=== PATIENT | female | born 1995 | race Caucasian/White ===

== ENCOUNTER 2017-12-02 15:34 | Emergency (ER) | payer MEDICAID, OTHER ==
[~2017-12-02] VITALS: Ht 152.4 cm; Wt 75.7 kg
[2017-12-02 15:34] VITALS: BP_SYST 138
[2017-12-02 15:55] VITALS: BP_SYST 138
== END 2017-12-02 15:54 | disposition home or self-care (01) ==
LOC: SED 15:34
DX: F41.0 Panic disorder [episodic paroxysmal anxiety] (principal); R03.0 Elevated blood-pressure reading, without diagnosis of hypertension
CPT/HCPCS: 99284

== ENCOUNTER 2018-06-17 17:42 | Emergency (ER) | payer MEDICAID ==
[~2018-06-17] VITALS: Ht 152.4 cm; Wt 77.1 kg
[2018-06-17 17:58] VITALS: BP_SYST 113
[2018-06-17 18:30] LABS: BASOPHILS # (AUTO) 0.1 K/uL (0.0-0.2); BASOPHILS % (AUTO) 1.2 % (0.0-2.0); EOSINOPHILS # (AUTO) 0.1 K/uL (0.0-0.4); HEMATOCRIT 36.8 % (36-48); LYMPHOCYTES # (AUTO) 2.7 K/uL (1.0-5.5); LYMPHOCYTES % (AUTO) 29.3 % (20.5-51.5); MEAN CORPUSCULAR HEMOGLOBIN 27 pg (27-31); MEAN CORPUSCULAR HGB CONC 33 % (32-36); MEAN CORPUSCULAR VOLUME 82 fL (79.0-98.0); MONOCYTES # (AUTO) 0.4 K/uL (0.0-1.0); MONOCYTES % (AUTO) 3.9 % (1.7-9.3); NEUTROPHILS % (AUTO) 64.6 % (40.0-70.0); PLATELET COUNT (AUTO) 361 K/uL (130-430); WHITE BLOOD COUNT (AUTO) 9.3 K/uL (4.8-10.8)
[2018-06-17 18:38] LABS: CALCIUM 9.4 mg/dL (8.4-11.0); CREATININE 0.77 mg/dL (0.55-1.30); POTASSIUM 3.6 mmol/L (3.5-5.1)
[2018-06-17 18:46] LABS: PROTHROMBIN TIME 10.5 SECS (9.5-12.5)
[2018-06-17 19:01] LABS: BILIRUBIN,URINE NEGATIVE (NEGATIVE); BLOOD, URINE 3+ (NEGATIVE); CLARITY/URINE CLOUDY (CLEAR); COLOR,URINE RED (YELLOW); GLUCOSE,URINE NEGATIVE (NEGATIVE); KETONES,URINE NEGATIVE (NEGATIVE); LEUKOCYTE ESTERASE ,URINE NEGATIVE (NEGATIVE); NITRITE, URINE NEGATIVE (NEGATIVE); PH,URINE 5.5 (5.0-8.0); PROTEIN URINE 3+ (NEGATIVE); UROBILINOGEN,URINE 0.2 (0.2-1.0)
[2018-06-17 19:02] LABS: BACTERIA,URINE FEW /HPF (None Seen); RBC,URINE >100 /HPF (0-3); WBC,URINE 0-3 /HPF (0-3)
[2018-06-17] MEDS ORDERED: KETOROLAC TROMETHAMINE 30 MG VIAL IM ONE (20:00)
[2018-06-17 21:06] VITALS: BP_SYST 113
== END 2018-06-17 21:06 | disposition home or self-care (01) ==
LOC: SED 17:42
DX: N94.6 Dysmenorrhea, unspecified (principal); F41.9 Anxiety disorder, unspecified
CPT/HCPCS: 36415; 80048; 81000; 81025; 84702; 85025; 85610; 85730; 96372; 99284; J1885

== ENCOUNTER 2018-08-04 17:50 | Emergency (ER) | payer MEDICAID ==
[~2018-08-04] VITALS: Ht 152.4 cm; Wt 77.1 kg
[2018-08-04 18:00] VITALS: BP_SYST 142
--- NOTE | 2018-08-04 18:05 | NUR ---
Patient triaged and placed in waiting room. VSS and patient appears in no acute distress at this time. Accompanied by SPOUSE, awaiting available bed, and MD notified of need for MSE.
[2018-08-04] MEDS ORDERED: NACL 0.9% 1,000 ML IV ONE (18:15)
[2018-08-04 18:22] LABS: COLOR,URINE RED (YELLOW)
[2018-08-04 18:23] LABS: BILIRUBIN,URINE NEGATIVE (NEGATIVE); BLOOD, URINE 3+ (NEGATIVE); CLARITY/URINE SLIGHTLY CLOUDY (CLEAR); GLUCOSE,URINE NEGATIVE (NEGATIVE); KETONES,URINE TRACE (NEGATIVE); LEUKOCYTE ESTERASE ,URINE NEGATIVE (NEGATIVE); NITRITE, URINE NEGATIVE (NEGATIVE); PROTEIN URINE 1+ (NEGATIVE)
[2018-08-04 18:32] LABS: BACTERIA,URINE FEW /HPF (None Seen); MUCUS,URINE None Seen /LPF (None Seen); RBC,URINE >100 /HPF (0-3); WBC,URINE 0-3 /HPF (0-3)
[2018-08-04 18:58] LABS: HEMATOCRIT 38.5 % (36-48); MEAN CORPUSCULAR HEMOGLOBIN 27 pg (27-31); MEAN CORPUSCULAR HGB CONC 34 % (32-36); MEAN CORPUSCULAR VOLUME 80 fL (79.0-98.0); PLATELET COUNT (AUTO) 322 K/uL (130-430); RED BLOOD CELL COUNT(AUTO) 4.85 MIL/uL (4.2-6.2); RED CELL DISTRIBUTION WIDTH 13.1 % (9.0-15.0); WHITE BLOOD COUNT (AUTO) 9.1 K/uL (4.8-10.8)
[2018-08-04 18:59] LABS: BASOPHILS # (AUTO) 0.1 K/uL (0.0-0.2); BASOPHILS % (AUTO) 0.8 % (0.0-2.0); EOSINOPHILS # (AUTO) 0.1 K/uL (0.0-0.4); EOSINOPHILS % (AUTO) 0.7 % (0.0-4.0); LYMPHOCYTES # (AUTO) 2.3 K/uL (1.0-5.5); LYMPHOCYTES % (AUTO) 25.1 % (20.5-51.5); MONOCYTES # (AUTO) 0.4 K/uL (0.0-1.0); MONOCYTES % (AUTO) 4.3 % (1.7-9.3); NEUTROPHILS # (AUTO) 6.2 K/uL (1.8-7.7); NEUTROPHILS % (AUTO) 69.1 % (40.0-70.0)
[2018-08-04 19:03] LABS: PROTHROMBIN TIME 9.8 SECS (9.5-12.5)
--- NOTE | 2018-08-04 19:39 | NUR ---
pt ambulatory to bed 7 for evaluation
--- NOTE | 2018-08-04 19:40 | NUR ---
Patient to ER via triage for evaluation of vag bleeding x 1 hour prior to arrival, patient c/o cramping prior to bleeding. Patient is , patient is awake, alert and oriented in no acute distress, vital signs stable, respirations even and unlabored, skin warm and dry to touch. Patient able to ambulate without difficulty to bed 7, awaiting results and dispo.
--- NOTE | 2018-08-04 20:00 | NUR ---
Patient resting quietly in no acute distress, awaiting results and dispo. Will continue to observe and assess.
--- NOTE | 2018-08-04 20:25 | NUR ---
ER at bedside examining patient.
[2018-08-04 21:00] VITALS: BP_SYST 130
--- NOTE | 2018-08-04 21:00 | NUR ---
Patient given written and verbal discharge instructions and verbalizes understanding. ER MD discussed with patient the results and treatment provided. Patient in stable condition. ID arm band removed. Rx of Motrin given. Patient educated on pain management and to follow up with PMD. Pain Scale 0. Opportunity for questions provided and answered. Medication side effect fact sheet provided. Patient left ER in no acute distress, able to ambulate without difficulty with slow, steady gait with friend at her side.
== END 2018-08-04 21:00 | disposition home or self-care (01) ==
LOC: SED 17:50
DX: O46.91 Antepartum hemorrhage, unspecified, first trimester (principal); O98.811 Other maternal infectious and parasitic diseases complicating pregnancy, first trimester; K04.7 Periapical abscess without sinus; F41.9 Anxiety disorder, unspecified; R03.0 Elevated blood-pressure reading, without diagnosis of hypertension; Z3A.01 Less than 8 weeks gestation of pregnancy
CPT/HCPCS: 36415; 76801; 76817; 81000-TC; 81025; 84702-TC; 85025; 85610-TC; 86901; 99284

== ENCOUNTER 2022-11-22 19:48 | Emergency (ER) | payer MEDICAID ==
[~2022-11-22] VITALS: Ht 154.9 cm; Wt 84.8 kg
[2022-11-22 19:54] VITALS: BP_SYST 149
[2022-11-22] MEDS ORDERED: IBUPROFEN 800 MG TABLET PO ONE (20:15)
[2022-11-22] MEDS ORDERED: HYDROcodone/ACETAMIN 7.5-325 MG TAB PO ONE (20:15)
[2022-11-22] MEDS ORDERED: TRAM50TA2 PO (21:17)
[2022-11-22] MEDS ORDERED: IBUP-1969 PO (21:17)
[2022-11-22 21:25] VITALS: BP_SYST 125
== END 2022-11-22 21:24 | disposition home or self-care (01) ==
LOC: SED 19:48
DX: S53.401A Unspecified sprain of right elbow, initial encounter (principal); Z79.899 Other long term (current) drug therapy; V00.131A Fall from skateboard, initial encounter; Y93.89 Activity, other specified; Y92.89 Other specified places as the place of occurrence of the external cause; Y99.8 Other external cause status
CPT/HCPCS: 73090; 81025; 99284

== ENCOUNTER 2023-09-04 17:51 | Emergency (ER) | payer MEDICAID ==
[~2023-09-04] VITALS: Ht 154.9 cm; Wt 86.2 kg
[~2023-09-04 17:51] MED LIST: IBUP-1969 PO; TRAM50TA2 PO
[2023-09-04 18:00] VITALS: BP_SYST 175; PULSE 106; RESP 18; TEMP 98.2; O2SAT 98
[2023-09-04 18:51] LABS: BASOPHILS # (AUTO) 0.1 K/uL (0.0-0.2); BASOPHILS % (AUTO) 1.1 % (0.0-2.0); EOSINOPHILS # (AUTO) 0.1 K/uL (0.0-0.4); EOSINOPHILS % (AUTO) 0.7 % (0.0-4.0); HEMOGLOBIN 13.6 g/dL (12.0-16.0); LYMPHOCYTES # (AUTO) 2.7 K/uL (1.0-5.5); MEAN CORPUSCULAR HEMOGLOBIN 28 pg (27-31); MEAN CORPUSCULAR HGB CONC 34 % (32-36); MEAN CORPUSCULAR VOLUME 84 fL (79.0-98.0); MONOCYTES # (AUTO) 0.4 K/uL (0.0-1.0); MONOCYTES % (AUTO) 4.9 % (1.7-9.3); NEUTROPHILS # (AUTO) 5.4 K/uL (1.8-7.7); NEUTROPHILS % (AUTO) 62.3 % (40.0-70.0); PLATELET COUNT (AUTO) 288 K/uL (130-430); RED BLOOD CELL COUNT(AUTO) 4.79 MIL/uL (4.2-6.2); RED CELL DISTRIBUTION WIDTH 13.7 % (9.0-15.0); WHITE BLOOD COUNT (AUTO) 8.6 K/uL (4.8-10.8)
[2023-09-04 20:06] LABS: BILIRUBIN,URINE NEGATIVE (NEGATIVE); CLARITY/URINE CLEAR (CLEAR); COLOR,URINE YELLOW (YELLOW); GLUCOSE,URINE 3+ (NEGATIVE); KETONES,URINE 2+ (NEGATIVE); LEUKOCYTE ESTERASE ,URINE NEGATIVE (NEGATIVE); NITRITE, URINE NEGATIVE (NEGATIVE); PROTEIN URINE NEGATIVE (NEGATIVE); UROBILINOGEN,URINE 0.2 (0.2-1.0)
[2023-09-04 20:15] LABS: BACTERIA,URINE RARE /HPF (None Seen); BLOOD, URINE TRACE (NEGATIVE); RBC,URINE 0-3 /HPF (0-3); WBC,URINE NONE SEEN /HPF (0-3)
[2023-09-04 20:16] LABS: MUCUS,URINE 1+ /LPF (None Seen)
[2023-09-04 22:41] VITALS: BP_SYST 123; PULSE 98; RESP 16; TEMP 97.8; O2SAT 98
== END 2023-09-04 22:41 | disposition home or self-care (01) ==
LOC: SED 17:51
DX: O20.0 Threatened abortion (principal); Z3A.09 9 weeks gestation of pregnancy; Z79.899 Other long term (current) drug therapy
CPT/HCPCS: 36415; 76856; 81000; 81001; 81015; 82948; 84702; 85025; 99284

== ENCOUNTER 2023-09-10 13:46 | Emergency (ER) | payer MEDICAID ==
[~2023-09-10] VITALS: Ht 154.9 cm; Wt 86.2 kg
[2023-09-10 13:46] VITALS: BP_SYST 157; PULSE 89; RESP 18; TEMP 97.2; O2SAT 99
[2023-09-10] MEDS: ONDANSETRON 4 MG ODT TAB PO ONE (14:21)
[2023-09-10] MEDS: MORPHINE 4 MG INJ. 4 MG/ML VIAL IM ONE (14:21)
[2023-09-10 14:38] LABS: BASOPHILS # (AUTO) 0.1 K/uL (0.0-0.2); BASOPHILS % (AUTO) 0.7 % (0.0-2.0); EOSINOPHILS # (AUTO) 0.1 K/uL (0.0-0.4); EOSINOPHILS % (AUTO) 0.8 % (0.0-4.0); HEMATOCRIT 37.4 % (36-48); HEMOGLOBIN 12.7 g/dL (12.0-16.0); LYMPHOCYTES # (AUTO) 2.1 K/uL (1.0-5.5); LYMPHOCYTES % (AUTO) 26.1 % (20.5-51.5); MEAN CORPUSCULAR HEMOGLOBIN 28 pg (27-31); MEAN CORPUSCULAR HGB CONC 34 % (32-36); MEAN CORPUSCULAR VOLUME 83 fL (79.0-98.0); MONOCYTES # (AUTO) 0.4 K/uL (0.0-1.0); MONOCYTES % (AUTO) 4.5 % (1.7-9.3); NEUTROPHILS # (AUTO) 5.4 K/uL (1.8-7.7); NEUTROPHILS % (AUTO) 67.9 % (40.0-70.0); PLATELET COUNT (AUTO) 263 K/uL (130-430); RED BLOOD CELL COUNT(AUTO) 4.49 MIL/uL (4.2-6.2); RED CELL DISTRIBUTION WIDTH 13.6 % (9.0-15.0); WHITE BLOOD COUNT (AUTO) 7.9 K/uL (4.8-10.8)
[2023-09-10] MEDS ORDERED: IBUP-1969 PO (15:54)
[2023-09-10 16:02] VITALS: BP_SYST 157; PULSE 89; RESP 18; TEMP 97.2; O2SAT 99
== END 2023-09-10 16:03 | disposition home or self-care (01) ==
LOC: SED 13:46
DX: O03.9 Complete or unspecified spontaneous abortion without complication (principal); O26.891 Other specified pregnancy related conditions, first trimester; Z3A.12 12 weeks gestation of pregnancy; Z79.899 Other long term (current) drug therapy
CPT/HCPCS: 99285; 96374; 84702; 85025; 86901; 36415; 76802; Q0162; J2270